=== PATIENT | female | born 1985 | race Caucasian/White ===

== ENCOUNTER 2017-12-07 15:57 | Inpatient (IN) | payer OTHER ==
[~2017-12-07] VITALS: Ht 162.6 cm; Wt 70.8 kg
[2017-12-07 17:11] LABS: ABSOLUTE BASOPHIL COUNT 0 /CUMM (0.0-0.2); ABSOLUTE EOSINOPHIL COUNT 0 /CUMM (0.0-0.7); ABSOLUTE GRANULOCYTE CT 5.9 /CUMM (1.4-6.5); ABSOLUTE LYMPH COUNT 1.4 /CUMM (1.2-3.4); ABSOLUTE MONOCYTE COUNT 0.7 /CUMM (0.10-0.60); BASOPHIL % 0.3 % (0.0-2.0); EOSINOPHIL % 0.3 % (0-5); GRANULOCYTE % 73.5 % (42.2-75.2); HEMATOCRIT 36.6 % (37-47); MEAN CORPUSCULAR HGB 30.8 PG (27.0-31.0); MEAN CORPUSCULAR HGB CONC 33.7 G/DL (33.0-37.0); MEAN CORPUSCULAR VOLUME 91.3 FL (81.0-99.0); MEAN PLATELET VOLUME 11.5 FL (7.4-10.4); RBC DISTRIBUTION WIDTH 13.6 % (11.5-14.5); RED BLOOD CELL CT 4.01 /CUMM (4.20-5.40); WHITE BLOOD CELL COUNT 8.1 /CUMM (4.8-10.8)
--- NOTE | 2017-12-07 17:16 | History & Physical ---
General Information and HPI MD Statement: I have seen and personally examined SYEDA DACOSTA and documented this H&P. The patient is a 32 year old female at 40 weeks and 5 days gestation who presented with a chief complaint of labor pains. 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 EENTM: Denies: blurred vision, double vision, visual changes. Cardiovascular: Denies: chest pain. Respiratory: Denies: cough, short of breath. GI: Denies: diarrhea, nausea, vomiting. Neurological/Psychological: Denies: anxiety, depressed. Exam & Diagnostic Data Last 24 Hrs of Vital Signs/I&O vss Obstetric Exam Wgt Gained During : 46# Pelvimetry: seems adequate Dilation (cm): 6 Effacement (%): 50 Station: -2 Membranes: intact Fluid: unknown Fundal Height (cm): 40 Multiple Gestation? No Contractions: Q2-3 #1 - FHR Baseline: 144 Category: 1 Estimated Weight: 3600g Presentation: vtx Patient for Induction? No Physical Exam General Appearance Alert, Oriented X3, Cooperative, Mild Distress Skin No Rashes HEENT Atraumatic Neck Supple Cardiovascular Regular Rate Lungs Clear to Auscultation Abdomen Normal Bowel Sounds Neurological Normal Gait, Normal Speech, Strength at 5/5 X4 Ext, Normal Tone Labs Blood Type & Rh: O POS Antibody Screen: neg Hct/Hgb & Platelets #1: 41.8/13.6/257 Hct/Hgb & Platelets #2: 37.4/11.7/154 Rubella: imm VDRL #1: nr VDRL #2: nr HbsAg: neg HIV #1: nr HIV #2 nr 1 Hr P 3 Hr PG: passed 85/132/150/151* Group B Strep: neg Initial Ultrasound: 05/05/2017 [id number] Anatomy Ultrasound: 07/14/2017 normal Ultrasound for EFW: 11/27/17 27%tile Genetic Testing: declined Hb electro AA Last 24 Hrs of Labs/Greg: Laboratory Tests 12/07/17 1645: CBC w Diff NO MAN DIFF REQ, RBC 4.01 L, MCV 91.3, MCH 30.8, MCHC 33.7, RDW 13.6 , MPV 11.5 H, Gran % 73.5, Lymphocytes % 17.4 L, Monocytes % 8.5, Eosinophils % 0.3, Basophils % 0.3, Absolute Granulocytes 5.9, Absolute Lymphocytes 1.4, Absolute Monocytes 0.7 H, Absolute Eosinophils 0, Absolute Basophils 0, Urine Color Pending, Urine Clarity Pending, Urine pH Pending, Ur Specific [place] Pending, Urine Protein Pending, Urine Ketones Pending, Urine Nitrite Pending, Urine Bilirubin Pending, Urine Urobilinogen Pending, Ur Leukocyte Esterase Pending, Ur Microscopic Pending, Urine Hemoglobin Pending, Urine Glucose Pending Assessment/Plan Assessment/Plan: active labor admit expectant management As Ranked By This Provider Problem List: 1. Core Measures Venous Thromboembolism VTE Risk Factors / No Mechanical VTE Prophylaxis d/t Early Ambulation No VTE Pharm Prophylaxis d/t LowRisk-No Interven Req'd Attending MD Review Statement Attending Statement Attending MD Statement: examined this patient, discussed with family, discussed w/nursing
[2017-12-07 17:32] LABS: PLATELET COUNT 115 /CUMM (130-400)
[2017-12-07 19:07] LABS: ABSOLUTE BASOPHIL COUNT 0 /CUMM (0.0-0.2); ABSOLUTE EOSINOPHIL COUNT 0 /CUMM (0.0-0.7); ABSOLUTE MONOCYTE COUNT 0.7 /CUMM (0.10-0.60)
[2017-12-07 19:11] LABS: ABSOLUTE GRANULOCYTE CT 6.3 /CUMM (1.4-6.5); ABSOLUTE LYMPH COUNT 1.3 /CUMM (1.2-3.4); BASOPHIL % 0.4 % (0.0-2.0); EOSINOPHIL % 0.1 % (0-5); GRANULOCYTE % 75.2 % (42.2-75.2); HEMATOCRIT 38.9 % (37-47); MEAN CORPUSCULAR HGB 30.8 PG (27.0-31.0); MEAN CORPUSCULAR VOLUME 90.6 FL (81.0-99.0); MEAN PLATELET VOLUME 11.8 FL (7.4-10.4); RBC DISTRIBUTION WIDTH 13.6 % (11.5-14.5); RED BLOOD CELL CT 4.29 /CUMM (4.20-5.40); WHITE BLOOD CELL COUNT 8.3 /CUMM (4.8-10.8)
[2017-12-07 19:26] LABS: PLATELET COUNT 124 /CUMM (130-400)
--- NOTE | 2017-12-08 02:32 | Labor & Delivery Summary ---
Delivery Summary Vaginal Delivery: Vaginal: vertex : : vacuum Station/Position at Renetta: +3 station Indication: maternal exhaustion Episiotomy/Lacerations: Episiotomy/Lacerations: partial 3degree Type: midline Repair: 0-polysorb and 3-0 polysorb Anesthesia: nessicaine 10 cc Placenta: Placenta: spontanteous, normal, 3 vessel Anesthesia: block Baby's Weight: 7# 12oz Apgars - 1 Min: 9 Apgars - 5 Min: 9 Additional Comments: vacuum extraction secondary to maternal exhaustion one pull was sufficient DANNA position. Post hemorrhage rx with im methergine 1 amp followed by hemabate 1 amp 300 cc in bladder
[2017-12-08 11:34] LABS: ABSOLUTE BASOPHIL COUNT 0 /CUMM (0.0-0.2); ABSOLUTE EOSINOPHIL COUNT 0 /CUMM (0.0-0.7); ABSOLUTE GRANULOCYTE CT 11.7 /CUMM (1.4-6.5); ABSOLUTE LYMPH COUNT 0.9 /CUMM (1.2-3.4); ABSOLUTE MONOCYTE COUNT 0.9 /CUMM (0.10-0.60); BASOPHIL % 0 % (0.0-2.0); EOSINOPHIL % 0 % (0-5); MEAN CORPUSCULAR HGB 30.7 PG (27.0-31.0); MEAN CORPUSCULAR HGB CONC 33.7 G/DL (33.0-37.0); MEAN CORPUSCULAR VOLUME 91.1 FL (81.0-99.0); MEAN PLATELET VOLUME 12.1 FL (7.4-10.4); RBC DISTRIBUTION WIDTH 13.5 % (11.5-14.5); RED BLOOD CELL CT 3.95 /CUMM (4.20-5.40)
[2017-12-08 12:06] LABS: PLATELET COUNT 121 /CUMM (130-400); WHITE BLOOD CELL COUNT 13.5 /CUMM (4.8-10.8)
[2017-12-08 12:07] LABS: GRANULOCYTE % 86.7 % (42.2-75.2)
--- NOTE | 2017-12-08 14:35 | PN- Post Delivery/GYN ---
Subjective Subjective: Tired. Denies pain. +void. Mild lochia rubra Objective Last 24 Hrs of Vital Signs/I&O Intake & Output 12/08 1600 12/08 0800 12/08 0000 Intake Total Output Total Balance Patient 156 lb Weight Physical Exam: Fundus firm, nontender Perineum - dry Extr - benign Assessment/Plan Assessment/Plan stable s/p routine care
[2017-12-09 08:45] LABS: ABSOLUTE BASOPHIL COUNT 0 /CUMM (0.0-0.2); ABSOLUTE EOSINOPHIL COUNT 0 /CUMM (0.0-0.7); ABSOLUTE LYMPH COUNT 1.5 /CUMM (1.2-3.4); BASOPHIL % 0.1 % (0.0-2.0); EOSINOPHIL % 0.4 % (0-5); GRANULOCYTE % 75.9 % (42.2-75.2); MEAN CORPUSCULAR HGB 30.9 PG (27.0-31.0); MEAN CORPUSCULAR VOLUME 90.8 FL (81.0-99.0); MEAN PLATELET VOLUME 11.4 FL (7.4-10.4); RBC DISTRIBUTION WIDTH 13.9 % (11.5-14.5); RED BLOOD CELL CT 3.26 /CUMM (4.20-5.40)
[2017-12-09 09:08] LABS: HEMATOCRIT 29.6 % (37-47)
[2017-12-09 10:17] LABS: WHITE BLOOD CELL COUNT 10.6 /CUMM (4.8-10.8)
[2017-12-09 10:18] LABS: PLATELET COUNT 125 /CUMM (130-400)
--- NOTE | 2017-12-09 10:58 | PN- Post Delivery/GYN ---
Subjective Subjective: FEELING WELL Review of Systems Constitutional: Denies: chills, fever. EENTM: Denies: blurred vision, double vision, visual changes. Cardiovascular: Reports: edema. Respiratory: Denies: short of breath. Gastrointestinal: Denies: nausea, vomiting. Genitourinary: Denies: dysuria. Musculoskeletal: Denies: back pain. Neurological/Psychological: Denies: anxiety, depressed. Objective Last 24 Hrs of Vital Signs/I&O VSS Physical Exam General Appearance Alert, Oriented X3, Cooperative, No Acute Distress Cardiovascular Regular Rate Lungs Clear to Auscultation Abdomen Soft, FUNDUS FIRM Extremities No Clubbing (2+PEDAL EDEMA) Pelvic (FEMALE) LOCHIA SEROSANGANOUS Current Medications: Current Medications Sig/Laya Start time Last Medication Dose Route Stop Time Status Admin Acetaminophen 650 MG Q4P PRN 12/08 0330 AC 12/08 PO 2322 Docusate Sodium 100 MG BID PRN 12/08 0330 AC PO Ibuprofen 800 MG Q6P PRN 12/08 0330 AC 12/09 PO 0300 Lactated Ringer's 1,000 ML Q8H 12/07 1700 AC IV Last 24 Hrs of Labs/Greg: Laboratory Tests 12/09/17 0806: CBC w Diff NO MAN DIFF REQ, RBC 3.26 L, MCV 90.8, MCH 30.9, MCHC 34.0, RDW 13.9 , MPV 11.4 H, Gran % 75.9 H, Lymphocytes % 14.4 L, Monocytes % 9.2, Eosinophils % 0.4, Basophils % 0.1, Absolute Granulocytes 8.0 H, Absolute Lymphocytes 1.5, Absolute Monocytes 1.0 H, Absolute Eosinophils 0, Absolute Basophils 0 Assessment/Plan Assessment/Plan POST ANEMIA 3DEGREE LACERATION PLAN AMBULATE D/C HOME TOMORROW AM Problem List: 1. Attending MD Review Statement Attending Statement Attending MD Statement: examined this patient, discussed with nursing
--- NOTE | 2017-12-10 11:33 | PN- OBGYN ---
Surgical Brief Attending Note Brief Attending Note: pt feeling better. amb / void / fidelina po. no dizziness. +bf and bottle. afeb, v/ss nad abd soft nt ff rishi min lochia ext nt +1 b/l le ed a/p ppd 2 s/p , doing well -d/c home w/ f/u in office in 2 wks -d/c instructions reviewed -routine pp care
== END 2017-12-10 12:13 | DRG 774 ==
LOC: CBCO 15:57 → GNO 16:49
PROVIDERS: Obstetrics & Gynecology
PROC: 10D07Z6 Extraction of Products of Conception, Vacuum, Via Natural or Artificial Opening (ICD-10-PCS; principal; 2017-12-08)
PROC: 0W3J3ZZ Control Bleeding in Pelvic Cavity, Percutaneous Approach (ICD-10-PCS; principal; 2017-12-08)
PROC: 0DQR0ZZ Repair Anal Sphincter, Open Approach (ICD-10-PCS; principal; 2017-12-08)
DX: O70.20 Third degree perineal laceration during delivery, unspecified (principal); O72.1 Other immediate postpartum hemorrhage; O90.81 Anemia of the puerperium; O75.81 Maternal exhaustion complicating labor and delivery; Z37.0 Single live birth; Z3A.40 40 weeks gestation of pregnancy; Z91.013 Allergy to seafood
CPT/HCPCS: GNOP; GNOS; 36415; 81001; 87086; J2210; J7120